=== PATIENT | male | born 1960 | race African-American/Black ===

== ENCOUNTER 2018-07-31 13:06 | Inpatient (IN) | payer OTHER ==
[~2018-07-31] VITALS: Ht 180.3 cm; Wt 73.5 kg
[2018-07-31 13:16] VITALS: BP 135/75
[2018-07-31 13:54] LABS: ANION GAP 6 mmol/L (7-16); BUN 8 mg/dL (7-18); CALCIUM 8.2 mg/dL (8.5-10.1); CHLORIDE 107 mmol/L (98-107); CO2 26 mmol/L (21-32); CREATININE 0.9 mg/dL (0.6-1.3); GLUCOSE 123 mg/dL (70-99); POTASSIUM 3.7 mmol/L (3.5-5.1); SODIUM 139 mmol/L (136-145)
[2018-07-31 14:05] LABS: ALBUMIN 2.7 g/dL (3.4-5.0); ALKALINE PHOSPHATASE 125 U/L (46-116); SGOT 34 U/L (15-37); SGPT 22 U/L (30-65); TOTAL BILIRUBIN 0.5 mg/dL (<0.1-1.0); TOTAL PROTEIN 7.6 g/dL (6.4-8.2); TROPONIN-I LEVEL <0.06 ng/mL (<0.06)
[2018-07-31 14:23] LABS: ABSOLUTE BASOPHILS 0.2 thou/uL (0.0-0.2); BASOPHILS 1.1 %; RBC > 8.00 mil/uL (4.50-6.00); WBC 14.5 thou/uL (4.0-11.0)
[2018-07-31 14:25] LABS: ABSOLUTE EOSINOPHILS 0.8 thou/uL (0.0-0.7); ABSOLUTE LYMPHOCYTES 1.9 thou/uL (0.8-5.3); ABSOLUTE MONOCYTES 0.3 thou/uL (0.0-1.2); ABSOLUTE NEUTROPHILS 11.3 thou/uL (1.6-8.1); EOSINOPHILS 5.5 %; HEMATOCRIT 54.6 % (42.0-52.0); HEMOGLOBIN 16.4 gm/dL (14.0-18.0); LYMPHOCYTES 13.1 %; MCH 19.2 pg (26.0-34.0); MONOCYTES 2.4 %; MPV 9.2 fl. (7.2-11.1); NUCLEATED RBCS 1 /100WBC; PLATELET COUNT* 143 thou/uL (150-400); POLYS 77.9 %; RDW-CV 27.1 % (10.5-14.5)
[2018-07-31 14:56] LABS: PLATELET ESTIMATE DECREASED
[2018-07-31 14:58] LABS: ANISOCYTOSIS 1+; MACROCYTES 1+; POLYCHROMASIA 1+
--- NOTE | 2018-07-31 15:24 | EKG ---
[place] [address] ELECTROCARDIOGRAM REPORT Name: REHAN SANDERS Room: [facility]#: [id number] Admission: 07/31/18 Attend Phys: Discharge: Date of : 56 Report #: [id number] THIS REPORT FOR: //name// [facility] ED Test Date: 2018-07-31 Test Time: 13:33:22 Pat Name: REHAN SANDERS Department: Room: Gender: Director Trading: [facility] : 1960 Requested By: Mildred Toscano Order Number: [id number] MD: Bola Ambrose Measurements Intervals [place] Rate: 72 P: 15 [place]: 151 QRS: 44 QRSD: 88 T: 48 QT: 379 QTc: 415 Interpretive Statements Sinus rhythm Probable left atrial enlargement No previous ECG available for comparison Electronically Signed On 07-31-2018 15:24:40 [employer]TEGRATION SOFTWARE ENGINE[employer] by Bola Ambrose [email or web address] <ELECTRONICALLY SIGNED> By: Bola Ambrose MD, [facility] 07/31/18 1524 1333 1333 Bola Ambrose MD, FACC /EPI
[2018-07-31 16:29] LABS: APTT 35.2 Seconds (25.0-31.3); INR 1.2; PROTIME 12.6 Seconds (9.20-11.50)
[2018-07-31 21:06] LABS: URINE BILIRUBIN NEGATIVE (Negative); URINE BLOOD TRACE (Negative); URINE CLARITY CLEAR; URINE COLOR YELLOW; URINE GLUCOSE-RANDOM NEGATIVE (Negative); URINE KETONES NEGATIVE (Negative); URINE LEUKOCYTES-REFLEX TRACE (Negative); URINE NITRITE-REFLEX NEGATIVE (Negative); URINE PROTEIN NEGATIVE (Negative); URINE SPECIFIC GRAVITY <= 1.005 (1.005-1.030)
[2018-07-31 21:13] LABS: SQUAMOUS 0-3 Few /LPF (0-3)
[2018-07-31 21:14] LABS: BACTERIA-REFLEX None Seen /HPF (None Seen); CASTS None Seen /LPF (None Seen); CRYSTALS None Seen /LPF (None Seen); URINE RBC 0-2 Rare /HPF (0-2); URINE WBC-REFLEX None Seen /HPF (0-5)
[2018-07-31 21:15] VITALS: BP 161/89; BP 171/91
[2018-07-31 21:20] LABS: AMP/METHAMP Negative (Negative); BARBITURATES Negative (Negative); BENZODIAZEPINES Negative (Negative); COCAINE Negative (Negative); METHADONE Negative (Negative); OPIATES Negative (Negative); PCP Negative (Negative); THC POSITIVE (Negative)
[2018-08-01] VITALS: BP 173/99
[2018-08-01 04:00] VITALS: BP 162/88
[2018-08-01 05:45] LABS: HEMOGLOBIN 15.5 gm/dL (14.0-18.0); RBC > 8.00 mil/uL (4.50-6.00)
[2018-08-01 05:51] LABS: HEMATOCRIT 51.9 % (42.0-52.0); MCH 19.1 pg (26.0-34.0); MCHC 29.9 g/dL (28.0-37.0); MCV 63.9 fL (80.0-100.0); MPV 8.9 fl. (7.2-11.1); NUCLEATED RBCS 2 /100WBC; PLATELET COUNT* 121 thou/uL (150-400); RDW-CV 27.4 % (10.5-14.5); WBC 13.6 thou/uL (4.0-11.0)
[2018-08-01 06:03] LABS: CALCIUM 8.2 mg/dL (8.5-10.1); POTASSIUM 4.1 mmol/L (3.5-5.1)
[2018-08-01 07:32] LABS: ABSOLUTE EOSINOPHILS 0.8 thou/uL (0.0-0.7); ABSOLUTE MONOCYTES 0.3 thou/uL (0.0-1.2); ABSOLUTE NEUTROPHILS 10.5 thou/uL (1.6-8.1); PLATELET ESTIMATE DECREASED
[2018-08-01 07:33] LABS: ANISOCYTOSIS 1+; POIKILOCYTOSIS 1+; POLYCHROMASIA 2+
[2018-08-01 07:34] LABS: HYPOCHROMASIA 3+
[2018-08-01 07:35] LABS: BURR CELLS 1+
[2018-08-01 08:18] VITALS: BP 142/79
[2018-08-01 12:00] VITALS: BP 160/85
[2018-08-01 16:00] VITALS: BP 161/88
[2018-08-02 01:09] VITALS: BP 139/73
[2018-08-02 04:00] VITALS: BP 172/84
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
[2018-08-02 08:18] VITALS: BP 161/68
[2018-08-02 11:37] VITALS: BP 162/90
[2018-08-02 16:00] VITALS: BP 155/86
[2018-08-02 20:38] VITALS: BP 181/89
[2018-08-03 00:34] VITALS: BP 157/82
[2018-08-03 04:35] VITALS: BP 176/88
[2018-08-03 08:11] VITALS: BP 158/96
[2018-08-03 11:52] VITALS: BP 151/98
[2018-08-03 17:00] VITALS: BP 187/106
[2018-08-03 20:00] VITALS: BP 174/90
[2018-08-04] VITALS (29 sets, daily range): BP systolic 105–219; BP diastolic 69–102
[2018-08-04 04:57] LABS: APTT 36.6 Seconds (25.0-31.3); INR 1.2; PROTIME 12.4 Seconds (9.20-11.50)
[2018-08-04 05:05] LABS: ALBUMIN 2.5 g/dL (3.4-5.0); CALCIUM 8.6 mg/dL (8.5-10.1); POTASSIUM 3.7 mmol/L (3.5-5.1); TOTAL BILIRUBIN 0.5 mg/dL (<0.1-1.0); TOTAL PROTEIN 7.4 g/dL (6.4-8.2)
[2018-08-04 05:17] LABS: HEMATOCRIT 52.2 % (42.0-52.0); HEMOGLOBIN 16.1 gm/dL (14.0-18.0); MCH 19.3 pg (26.0-34.0); MCHC 30.8 g/dL (28.0-37.0); MCV 62.8 fL (80.0-100.0); NUCLEATED RBCS 1 /100WBC; PLATELET COUNT* 129 thou/uL (150-400); RBC > 8.00 mil/uL (4.50-6.00); RDW-CV 26.2 % (10.5-14.5); WBC 31.1 thou/uL (4.0-11.0)
[2018-08-04 05:57] LABS: ABSOLUTE EOSINOPHILS 0.3 thou/uL (0.0-0.7); ABSOLUTE LYMPHOCYTES 2.2 thou/uL (0.8-5.3); ABSOLUTE MONOCYTES 1.6 thou/uL (0.0-1.2); ABSOLUTE NEUTROPHILS 27.1 thou/uL (1.6-8.1); PLATELET ESTIMATE DECREASED
[2018-08-04 05:58] LABS: HYPOCHROMASIA 2+; MICROCYTES 2+; POLYCHROMASIA 1+; TARGET CELLS 1+
[2018-08-04 05:59] LABS: SCHISTOCYTES Occasional
[2018-08-04 06:00] LABS: ANISOCYTOSIS 2+; LARGE PLATELETS RARE; POIKILOCYTOSIS 2+
[2018-08-04 06:01] LABS: OVALOCYTES 1+
[2018-08-05] VITALS: BP 156/83
[2018-08-05 04:00] VITALS: BP 164/87
[2018-08-05 07:30] VITALS: BP 185/99
[2018-08-05 09:16] LABS: ABSOLUTE BASOPHILS 0.2 thou/uL (0.0-0.2); ABSOLUTE EOSINOPHILS 0.5 thou/uL (0.0-0.7); ABSOLUTE LYMPHOCYTES 1.5 thou/uL (0.8-5.3); ABSOLUTE MONOCYTES 0.6 thou/uL (0.0-1.2); ABSOLUTE NEUTROPHILS 28.4 thou/uL (1.6-8.1); BASOPHILS 0.7 %; EOSINOPHILS 1.6 %; HEMATOCRIT 50.6 % (42.0-52.0); LYMPHOCYTES 4.8 %; MCH 18.9 pg (26.0-34.0); MCHC 29.7 g/dL (28.0-37.0); MCV 63.7 fL (80.0-100.0); MONOCYTES 1.9 %; MPV 9.5 fl. (7.2-11.1); NUCLEATED RBCS 1 /100WBC; PLATELET COUNT* 135 thou/uL (150-400); RBC 7.94 mil/uL (4.50-6.00); RDW-CV 26.4 % (10.5-14.5); WBC 31.2 thou/uL (4.0-11.0)
[2018-08-05 09:24] LABS: ALBUMIN 2.5 g/dL (3.4-5.0); CALCIUM 8.4 mg/dL (8.5-10.1); TOTAL BILIRUBIN 0.4 mg/dL (<0.1-1.0); TOTAL PROTEIN 6.6 g/dL (6.4-8.2)
[2018-08-05 16:00] VITALS: BP 148/74
[2018-08-05 20:20] VITALS: BP 133/74
[2018-08-06] VITALS (7 sets, daily range): BP systolic 129–176; BP diastolic 69–84
[2018-08-06 09:49] LABS: HEMATOCRIT 51.1 % (42.0-52.0); HEMOGLOBIN 15.1 gm/dL (14.0-18.0); MCH 18.7 pg (26.0-34.0); MCHC 29.6 g/dL (28.0-37.0); MCV 63.2 fL (80.0-100.0); MPV 9.3 fl. (7.2-11.1); NUCLEATED RBCS 2 /100WBC; RBC > 8.00 mil/uL (4.50-6.00); RDW-CV 26.8 % (10.5-14.5); WBC 21.5 thou/uL (4.0-11.0)
[2018-08-06 09:51] LABS: CALCIUM 8.3 mg/dL (8.5-10.1); CREATININE 1.1 mg/dL (0.6-1.3); POTASSIUM 3.5 mmol/L (3.5-5.1)
[2018-08-06 10:24] LABS: ABSOLUTE EOSINOPHILS 1.7 thou/uL (0.0-0.7); ABSOLUTE LYMPHOCYTES 1.3 thou/uL (0.8-5.3); ABSOLUTE MONOCYTES 0.6 thou/uL (0.0-1.2); ABSOLUTE NEUTROPHILS 17.8 thou/uL (1.6-8.1); PLATELET ESTIMATE DECREASED; POLYCHROMASIA 1+
[2018-08-06 10:25] LABS: HYPOCHROMASIA 1+; MICROCYTES 2+
[2018-08-06 10:26] LABS: TARGET CELLS Occasional
[2018-08-06 10:27] LABS: ANISOCYTOSIS 1+; OVALOCYTES Occasional; POIKILOCYTOSIS 1+
[2018-08-06 10:33] LABS: PLATELET COUNT* 142 thou/uL (150-400)
--- NOTE | 2018-08-06 14:07 | PATH ---
[address] [place] [address] PATHOLOGY RPT PROCEDURE Name: REHAN SANDERS Room: [address] IN M.R.#: [id number] Admission: 07/31/18 Date of : 56 Discharge: Report #: [id number] Path Case #: [id number] [facility] Accession Number: [id number] . 01 Material submitted: . RIGHT LUNG BIOPSY . 01 Clinical history: . Lung cancer R lung mass . 02 Diagnosis: Lung, "right lung mass, needle core biopsy": - Lung biopsy revealing mild chronic inflammation and hemorrhage. - There is no evidence of malignancy. - See comment. . (SHA:torie; 08/06/2018) QLM/08/06/2018 . 02 Comment: This case is also reviewed by Dr. Key Moise. Suggest clinical and radiological correlation as the biopsy may not be food products sales representative. . (SHA:mml; 08/06/2018) . 02 Electronically signed: . Johann Escoto MD, Pathologist NPI- [id number] . 01 Gross description: . Received in formalin labeled "Rehan Sanders R lung mass," are six needle core fragments of prieto-brown soft tissue ranging from 0.2 to 1.4 cm in length and measuring less than 0.1 cm each in diameter. The specimen is submitted entirely in cassettes A1 through A3. ([facility]; 08/05/2018) XDC/XDC . 02 Pathologist provided ICD-10: J98.4 . 02 CPT . 296071 Specimen Comment: A courtesy copy of this report has been sent to Specimen Comment: [phone]. Specimen Comment: Report sent to Performed at: [address] [address] PATHOLOGY RPT PROCEDURE Name: REHAN SANDERS Room: [address] IN [facility]#: [id number] Admission: 07/31/18 Date of : 56 Discharge: Report #: [id number] Path Case #: [id number] [address] [id number] MD Shelton Carrasco MD Phone: [phone] Performed at: [address] [place], [place] [id number] MD Giovanny Siddiqi MD Phone: [phone]
[2018-08-07 04:00] VITALS: BP 170/82
[2018-08-07 08:00] VITALS: BP 193/95
[2018-08-07 11:53] VITALS: BP 139/86
[2018-08-07] MEDS ORDERED: HYDROCODON-ACE1 EAC7 PO (13:41)
[2018-08-07] MEDS ORDERED: XARELTO15 MG PO (17:15)
[2018-08-07] MEDS ORDERED: SINGULAIR 10 MG10 M1 PO (17:16)
[2018-08-07] MEDS ORDERED: VENTOLIN HFA 1818 GM INH (17:18)
== END 2018-08-07 19:30 | disposition home or self-care (01) | DRG 299 ==
LOC: M.ERS 13:06 → M.2W 17:30 → M.TBA-ER 17:30 → M.2W 21:19
PROVIDERS: Internal Medicine; Internal Medicine Hematology & Oncology; Physician Assistant; ADMIT Internal Medicine
PROC: 0BBC3ZX Excision of Right Upper Lung Lobe, Percutaneous Approach, Diagnostic (ICD-10-PCS; principal; 2018-08-04)
DX: I82.432 Acute embolism and thrombosis of left popliteal vein (principal); J18.9 Pneumonia, unspecified organism; G93.40 Encephalopathy, unspecified; J93.83 Other pneumothorax; J98.4 Other disorders of lung; E86.0 Dehydration; D75.1 Secondary polycythemia; G62.9 Polyneuropathy, unspecified; Z83.3 Family history of diabetes mellitus